=== PATIENT | male | born 1960 | race Caucasian/White ===

== ENCOUNTER 2021-08-19 18:47 | Emergency (ER) | payer BC, MEDICAID ==
--- NOTE | 2021-08-19 19:25 | EDM.PDOC ---
ED HPI GENERAL MEDICAL PROBLEM - General Chief Complaint: Chest Pain Stated Complaint: FALL HURT RIGHT SIDE RIBS Time Seen by Provider: 08/19/21 19:21 Source of Information: Reports: Patient History Limitations: Reports: No Limitations - History of Present Illness INITIAL COMMENTS - FREE TEXT/NARRATIVE: Erwin is a 60-year-old male presenting to the ED for evaluation of right an terior and central chest pain that started after he fell off of scaffolding landing on a rung of the ladder around 1500 hrs. today. Patient states that he initially had some anterior chest pain but since then has been developing increasing shortness of breath and discomfort because he cannot take deep breaths due to pain. He denies any other injuries. right sided upper rib pain Pain Score (Numeric/FACES): 8 - Related Data Allergies Allergy/AdvReac Type Severity Reaction Status Date / Time No Known Allergies Allergy Verified 08/19/21 19:25 Home Meds: Home Meds Aspirin [Halfprin] 81 mg PO DAILY 08/19/21 [History] Fish Oil/[place]-3 Fatty Acids [Fish Oil 1,000 MG] 1,000 mg PO DAILY 08/19/21 [History] Metoprolol Succinate [Toprol XL] 0 mg PO DAILY 08/19/21 [History] lisinopriL [Lisinopril] 0 mg PO DAILY 08/19/21 [History] ED ROS GENERAL - Review of Systems Review Of Systems: See Below Constitutional: Reports: No Symptoms HEENT: Reports: No Symptoms Respiratory: Reports: Shortness of Breath (Difficult time taking a deep breath due to chest pain) Cardiovascular: Reports: Chest Pain (Right anterior wall chest pain) Endocrine: Reports: No Symptoms GI/Abdominal: Reports: No Symptoms : Reports: No Symptoms Musculoskeletal: Reports: No Symptoms Skin: Reports: No Symptoms Neurological: Reports: No Symptoms Psychiatric: Reports: No Symptoms Hematologic/Lymphatic: Reports: No Symptoms ED EXAM, GENERAL - Physical Exam Exam: See Below Exam Limited By: No Limitations General Appearance: Alert, Mild Distress Eye Exam: Bilateral Eye: EOMI, PERRL Head: Atraumatic Neck: Normal Inspection, Supple Respiratory/Chest: No Respiratory Distress, Splinting, Other (Tenderness with palpation to the anterior right chest wall. No crepitus. No step-off.) Cardiovascular: Normal Peripheral Pulses, Regular Rate, Rhythm, No Murmur Neurological: Alert, Oriented, Normal Cognition, No Motor/Sensory Deficits Skin Exam: Warm, Dry, Intact, Normal Color, No Rash. No: Ecchymosis Course - Vital Signs Last Recorded V/S: Last Vital Signs Temp 36.9 C 08/19/21 19:35 Pulse 65 08/19/21 19:35 Resp 14 08/19/21 19:35 BP 124/68 08/19/21 19:35 Pulse Ox 96 08/19/21 19:35 - Orders/Labs/Meds Orders: Active Orders 24 hr Category Date Time Status Ribs 2V w Chest Rt [CR] Stat Exams 08/19/21 19:15 Taken Iopamidol [Isovue-300 (61%)] Med 08/19/21 20:00 Active 100 ml IV . DIRECTED Sodium Chloride 0.9% [Normal Saline] 80 ml Med 08/19/21 20:00 Active IV ASDIRECTED Sodium Chloride 0.9% [Saline Flush] Med 08/19/21 19:46 Active 10 ml FLUSH ASDIRECTED PRN Saline Lock Insert [OM.PC] Routine Oth 08/19/21 19:46 Ordered Medication Orders Sodium Chloride (Normal Saline) 80 mls @ 3 mls/sec IV ASDIRECTED ANABELA Last Admin: 08/19/21 20:05 Dose: 3 mls/sec Documented by: MYKLALY Iopamidol (Iopamidol 612 Mg/Ml 100 Ml Bottle) 100 ml IV . DIRECTED ANABELA Last Admin: 08/19/21 20:05 Dose: 100 ml Documented by: MYKLALY Sodium Chloride (Sodium Chloride 0.9% 10 Ml Syringe) 10 ml FLUSH ASDIRECTED PRN PRN Reason: Keep Vein Open Labs: Laboratory Tests 08/19/21 Range/Units 19:54 Creatinine 0.9 (0.7-1.3) mg/dL Est Cr Clr Drug Dosing 89.47 mL/min Estimated GFR (MDRD) > 60 (>60) Meds: Medications Generic Name Dose Route Start Last Admin Trade Name Freq PRN Reason Stop Dose Admin Sodium Chloride 80 mls @ 3 mls/sec 08/19/21 20:00 08/19/21 20:05 Normal Saline IV 3 mls/sec ASDIRECTED ANABELA Administration Iopamidol 100 ml 08/19/21 20:00 08/19/21 20:05 Iopamidol 612 Mg/Ml 100 Ml Bottle IV 100 ml . DIRECTED ANABELA Administration Sodium Chloride 10 ml 08/19/21 19:46 Sodium Chloride 0.9% 10 Ml Syringe FLUSH ASDIRECTED PRN Keep Vein Open Discontinued Medications Generic Name Dose Route Start Last Admin Trade Name Duncan PRN Reason Stop Dose Admin Lidocaine 700 mg 08/19/21 20:31 Lidocaine 5% 700 Mg Patch TOP 08/19/21 20:32 ONETIME ONE - Radiology Interpretation Free Text/Narrative:: I reviewed the three-view right ribs and chest x-ray and the patient. There is no demonstrable evidence for a rib fracture, however, there is a 1.8 x 1.9 cm round mass in the right lower lobe. For this reason, the we will get a CT of the chest with contrast to evaluate this mass. I reviewed the images of the CT of the chest with contrast as well as the report. The report is as follows: FINDINGS: Lungs and pleural: No suspicious nodules or infiltrates. Large calcification in the right lower lobe is likely a calcified granuloma. No pleural effusions, pleu ral thickening, or pneumothorax. Incidental note is made of an azygos lobe, a normal variant. Heart and vasculature: Heart size is normal. Thoracic aorta and pulmonary artery are normal in caliber. Lymph nodes/mediastinum: No mediastinal, hilar, or axillary adenopathy. Chest wall: No masses. Upper abdomen: Normal. Bones: Unremarkable for age. IMPRESSION: Right lower lobe calcified granuloma, otherwise clear lungs. Please note that all CT scans at this facility use dose modulation, iterative reconstruction, and/or weight-based dosing when appropriate to reduce radiation dose to as low as reasonably achievable. Dictated by Elieser Kenny MD @ 08/19/2021 8:46:39 PM - Re-Assessments/Exams Free Text/Narrative Re-Assessment/Exam: 08/19/21 21:02 examination and with x-rays, the patient has evidence for bruising of the ribs and chest wall. I recommend treating this with lidocaine topical patch and we will put the patient on oral ketorolac to reduce inflammation. I reassured the patient that there is no evidence for any fractures. The CT of the chest shows that he has a sizable calcified granuloma likely due to a previous fungal infection like histoplasmosis or blastomycosis. There is really nothing that needs to be done with this. There is no evidence for neoplasm. At this time the patient is suitable for discharge home in satisfactory condition. Departure - Departure Time of Disposition: 21:03 Disposition: Home, Self-Care 01 Clinical Impression: Calcified granuloma of lung Contusion of right chest wall Qualifiers: Encounter type: initial encounter Qualified Code(s): S20.211A - Contusion of right front wall of thorax, initial encounter - Discharge Information Instructions: Blunt Chest Trauma Referrals: PCP,None [Primary Care Provider] - Forms: ED Department Discharge Care Plan Goals: Your work-up today has not demonstrated any evidence for rib fracture, but rather the you suffered a contusion or bruising to the chest wall which in most cases can be more painful than rib fractures. I recommend picking up Salonpas lidocaine patches at your local pharmacy or [facility]. These are much more reasonably priced than Lidoderm patches which are usually not covered by insurance and are $11 apiece. I did prescribe a second pain medicine called Toradol which is a potent anti-inflammatory to reduce inflammation of the muscles and nerves causing the pain. You may take 1 tablet 4 times a day as needed for the next 5 days. Please take with food as it can be quite harsh on the stomach. This will likely improve over the course of the next 5 days. Activity as tolerated. The CT of your chest demonstrated a calcified granuloma which is not cancer or neoplasm but rather a walled off segment from a previous fungal infection in the lung due to either blastomycosis or histoplasmosis which are both found in soil in the [facility]. There is nothing to worry about with this. Have a safe and [place]. Sepsis Event Note (ED) - Focused Exam Vital Signs: Vital Signs Temp Pulse Resp BP Pulse Ox 08/19/21 19:35 36.9 C 65 14 124/68 96 08/19/21 19:34 36.9 C 65 14 124/68 96 - Problem List & Annotations (1) Calcified granuloma of lung SNOMED Code(s): 75313380666618904, 82443946500314413 Code(s): J84.10 - PULMONARY FIBROSIS, UNSPECIFIED Status: Chronic Priority: Medium Current Visit: Yes (2) Contusion of right chest wall SNOMED Code(s): 49175976858706675 Code(s): S20.211A - CONTUSION OF RIGHT FRONT WALL OF THORAX, INITIAL ENCOUNTER Status: Acute Priority: Medium Current Visit: Yes Qualifiers: Encounter type: initial encounter Qualified Code(s): S20.211A - Contusion of right front wall of thorax, initial encounter - Problem List Review Problem List Initiated/Reviewed/Updated: Yes - My Orders Last 24 Hours: My Active Orders 08/19/21 19:15 Ribs 2V w Chest Rt [CR] Stat 08/19/21 19:46 Sodium Chloride 0.9% [Saline Flush] 10 ml FLUSH ASDIRECTED PRN Saline Lock Insert [OM.PC] Routine 08/19/21 20:00 Iopamidol [Isovue-300 (61%)] 100 ml IV . DIRECTED Sodium Chloride 0.9% [Normal Saline] 80 ml IV ASDIRECTED - Assessment/Plan Last 24 Hours: My Active Orders 08/19/21 19:15 Ribs 2V w Chest Rt [CR] Stat 08/19/21 19:46 Sodium Chloride 0.9% [Saline Flush] 10 ml FLUSH ASDIRECTED PRN Saline Lock Insert [OM.PC] Routine 08/19/21 20:00 Iopamidol [Isovue-300 (61%)] 100 ml IV . DIRECTED Sodium Chloride 0.9% [Normal Saline] 80 ml IV ASDIRECTED
[2021-08-19] MEDS ORDERED: Sodium Chloride 0.9% 10 ML Syringe FLUSH PRN (19:46)
[2021-08-19] MEDS ORDERED: Sodium Chloride 0.9% 80 ML IV SCH (20:00)
[2021-08-19] MEDS ORDERED: Iopamidol 612 MG/ML 100 ML Bottle IV SCH (20:00)
[2021-08-19] MEDS ORDERED: Lidocaine 5% 700 MG Patch TOP ONE (20:31)
--- NOTE | 2021-08-19 20:49 | CRLCT ---
For Patients: As a result of the Century Cures Act, medical imaging exams and procedure reports are released immediately into your electronic medical record. You may view this report before your referring provider. If you have questions, please contact your health care provider. INDICATION: Right lung mass. TECHNIQUE: CT chest was acquired with 100 cc Omnipaque 300 IV contrast. COMPARISON: None. FINDINGS: Lungs and pleural: No suspicious nodules or infiltrates. Large calcification in the right lower lobe is likely a calcified granuloma. No pleural effusions, pleural thickening, or pneumothorax. Incidental note is made of an azygos lobe, a normal variant. Heart and vasculature: Heart size is normal. Thoracic aorta and pulmonary artery are normal in caliber. Lymph nodes/mediastinum: No mediastinal, hilar, or axillary adenopathy. Chest wall: No masses. Upper abdomen: Normal. Bones: Unremarkable for age. IMPRESSION: Right lower lobe calcified granuloma, otherwise clear lungs. Please note that all CT scans at this facility use dose modulation, iterative reconstruction, and/or weight-based dosing when appropriate to reduce radiation dose to as low as reasonably achievable. Dictated by Elieser Kenny MD @ 08/19/2021 8:46:39 PM (Electronically Signed)
--- NOTE | 2021-08-20 09:29 | CR ---
Ribs 2V w Chest Rt CLINICAL HISTORY: Mid to low right rib pain, fall FINDINGS: There is no acute fracture within the ribs. No destructive changes are seen. There is no focal pleural thickening or obvious effusion. There is a 12 mm well-demarcated nodule in the right lower lung field with calcification IMPRESSION: Negative right ribs. Right lower lobe granuloma
== END 2021-08-19 21:22 | disposition home or self-care (01) ==
LOC: JP.ED 18:47
DX: S20.211A Contusion of right front wall of thorax, initial encounter (principal); J84.10 Pulmonary fibrosis, unspecified; W12.XXXA Fall on and from scaffolding, initial encounter
CPT/HCPCS: 36415; 71101; 71260; 82565; 99284; A9270; Q9967